=== PATIENT | female | born 1985 | race African-American/Black ===

== ENCOUNTER 2016-08-04 10:13 | Emergency (ER) | payer MEDICARE, OTHER ==
[~2016-08-04] VITALS: Ht 152.4 cm; Wt 93.0 kg
[2016-08-04] MEDS ORDERED: ARIP1TAB5 PO (10:36)
[2016-08-04 10:38] VITALS: BP 116/78; PULSE 84; RESP 18; TEMP 98.1; O2SAT 99
[2016-08-04] MEDS ORDERED: schizo med PO (10:38)
--- NOTE | 2016-08-04 11:07 | PD ---
HPI Chief Complaint: Psychiatric Symptoms Time Seen by Provider: 11:07 Travel History International Travel<30 days: No Contact w/Intl Traveler<30days: No Traveled to known affect area: No History of Present Illness HPI 30-year-old female presents to the emergency Department under [place] act for hearing voices. Patient was a history of schizophrenia. She states she is currently on Abilify and one other medication that she takes 3 times daily. She states she is taking as prescribed, but the voices are getting worse. She states the last night, the voices matre violent and she hit her hand against a glass table causing a small cut to her right hand. Patient states her tetanus immunization is not up-to-date. She also reports a history of pilonidal cyst removal and currently has a wound VAC. She states she had the pilonidal cyst removed on July 18, 2016. She denies any complications. No fevers. She has no other chronic medical problems. She states she takes no other medications other than her psychiatric medications. Patient denies . She denies any medical complaints at this time. [facility] Past Medical History Asthma: No Autoimmune Disease: No Anxiety: Yes Depression: Yes COPD: No Respiratory: No Schizophrenia: Yes Sleep Apnea: No Influenza Vaccination: No ?: Unknown Past Surgical History Surgical History: No Previous Surgery Social History Alcohol Use: No Tobacco Use: No Substance Use: No Allergies-Medications (Allergen,Severity, Reaction): Coded Allergies: Penicillin (Verified Allergy, Intermediate, rash, 08/04/16) Sulfa (Verified Allergy, Intermediate, rash, 08/04/16) Reported Meds & Prescriptions Reported Meds & Active Scripts Active Reported [schizo med] 1 Tab PO TID Abilify (Aripiprazole) 10 Mg Tab 10 Mg PO DAILY Review of Systems Except as stated in HPI: all other systems reviewed are Neg Physical Exam Narrative GENERAL: Well-developed well-nourished female patient, ambulatory. Afebrile. SKIN: Warm and dry. Patient has a wound VAC to the upper gluteal cleft. Surrounding Skin appears well with no erythema. Patient has a small superficial laceration to the right medial hand without active bleeding. HEAD: Normocephalic. Atraumatic. EYES: No scleral icterus. No injection or drainage. NECK: Supple, trachea midline. No JVD or lymphadenopathy. CARDIOVASCULAR: Regular rate and rhythm without murmurs, gallops, or rubs. RESPIRATORY: Breath sounds equal bilaterally. No accessory muscle use. Lungs sounds are clear to auscultation. GASTROINTESTINAL: Abdomen soft, non-tender, nondistended. MUSCULOSKELETAL: No cyanosis, or edema. BACK: Nontender without obvious deformity. No CVA tenderness. Data Data Last Documented VS Vital Signs Date Time Temp Pulse Resp B/P Pulse Ox O2 Delivery O2 Flow Rate FiO2 08/04/16 10:38 98.1 84 18 116/78 99 Orders Complete Blood Count With Diff (08/04/16 11:05) Comprehensive Metabolic Panel (08/04/16 11:05) Drug Screen, Random Urine (08/04/16 11:05) Alcohol (Ethanol) (08/04/16 11:05) Psych Screen (08/04/16 11:05) Ed Urine Pregnancytest Poc (08/04/16 11:05) Tetanus/Diphtheria Tox Adult (Tetanus/Di (08/04/16 11:15) Wound Care (08/04/16 11:05) Labs Laboratory Tests Test 08/04/16 08/04/16 11:00 11:45 Sodium Level 139 MEQ/L Potassium Level 4.4 MEQ/L Chloride Level 109 MEQ/L Carbon Dioxide Level 22.3 MEQ/L Anion Gap 8 MEQ/L Blood Urea Nitrogen 12 MG/DL Creatinine 0.96 MG/DL Estimat Glomerular Filtration 83 ML/MIN Rate Random Glucose 84 MG/DL Calcium Level 8.6 MG/DL Total Bilirubin 0.3 MG/DL Aspartate Amino Transf 60 U/L (AST/SGOT) Alanine Aminotransferase 56 U/L (ALT/SGPT) Alkaline Phosphatase 82 U/L Total Protein 7.3 GM/DL Albumin 3.6 GM/DL Urine Opiates Screen NEG Urine Barbiturates Screen POS Urine Amphetamines Screen NEG Urine Benzodiazepines Screen NEG Urine Cocaine Screen NEG Urine Cannabinoids Screen NEG Ethyl Alcohol Level LESS THAN 3 MG/DL White Blood Count 13.8 TH/MM3 Red Blood Count 4.83 MIL/MM3 Hemoglobin 13.3 GM/DL Hematocrit 42.8 % Mean Corpuscular Volume 88.7 FL Mean Corpuscular Hemoglobin 27.5 PG Mean Corpuscular Hemoglobin 31.0 % Concent Red Cell Distribution Width 14.8 % Platelet Count 342 TH/MM3 Mean Platelet Volume 7.4 FL Neutrophils (%) (Auto) 81.5 % Lymphocytes (%) (Auto) 7.0 % Monocytes (%) (Auto) 9.8 % Eosinophils (%) (Auto) 1.1 % Basophils (%) (Auto) 0.6 % Neutrophils # (Auto) 11.3 TH/MM3 Lymphocytes # (Auto) 1.0 TH/MM3 Monocytes # (Auto) 1.4 TH/MM3 Eosinophils # (Auto) 0.2 TH/MM3 Basophils # (Auto) 0.1 TH/MM3 CBC Comment DIFF FINAL Differential Comment MDM Medical Decision Making Medical Screen Exam Complete: Yes Emergency Medical Condition: Yes Medical Record Reviewed: Yes Differential Diagnosis Schizophrenia versus abrasion versus laceration versus depression versus bipolar disorder Narrative Course 30-year-old female presents to the emergency Department under [place] act for psychiatric evaluation. She was sent by sally Rudolph due to having wound VAC. She denies any complications with this. Tetanus immunization is updated. Laceration is very superficial and no sutures are indicated at this time. CBC , CMP, urine drug screen, alcohol level are ordered and pending. Urine test is ordered and pending. CBC shows leukocytosis of 13.8, possibly stress-induced. CMP shows slightly elevated LFTs of AST 60, AST 56. Urine drug screen is positive for barbiturates. Alcohol level is less than 3. Urine test is negative. Diagnosis Primary Impression: Schizophrenia Qualified Code: F20.9 - Schizophrenia, unspecified type Additional Instructions: Patient is medically cleared for psychiatric screening and disposition. Condition: Stable Caterina MathiasP Aug 04, 2016 11:07
[2016-08-04] MEDS ORDERED: TETANUS/DIPHTHERIA TOXOID ADULT 0.5 ML VIAL IM ONE (11:15)
[2016-08-04 11:32] LABS: AMPHETAMINE, URINE NEG (NEG); BARBITURATES, URINE POS (NEG); COCAINE, URINE NEG (NEG)
[2016-08-04 11:44] LABS: ALT (GPT) 56 U/L (10-53); ANION GAP 8 MEQ/L (5-15); AST (GOT) 60 U/L (15-37); BICARBONATE 22.3 MEQ/L (21.0-32.0); BLOOD UREA NITROGEN 12 MG/DL (7-18); CHLORIDE 109 MEQ/L (98-107); GLOMERULAR FILTRATION RATE 83 ML/MIN (>89); POTASSIUM 4.4 MEQ/L (3.5-5.1); SODIUM (NA) 139 MEQ/L (136-145)
[2016-08-04 11:45] LABS: ALKALINE PHOSPHATASE 82 U/L (45-117); TOTAL BILIRUBIN ADULT 0.3 MG/DL (0.2-1.0)
[2016-08-04 12:05] LABS: AUTOMATED NEUTROPHIL # 11.3 TH/MM3 (1.8-7.7); BASOPHIL # 0.1 TH/MM3 (0-0.2); BASOPHIL % 0.6 % (0.0-2.0); EOSINOPHIL # 0.2 TH/MM3 (0-0.4); EOSINOPHIL % 1.1 % (0.0-4.0); HEMATOCRIT 42.8 % (35.0-46.0); HEMO FLAGS DIFF FINAL; MEAN CELL VOLUME 88.7 FL (80.0-100.0); MEAN CORPUSCULAR HEMOGLOBIN 27.5 PG (27.0-34.0); MONO % 9.8 % (0.0-8.0); NEUT % 81.5 % (16.0-70.0); PLATELET COUNT 342 TH/MM3 (150-450); RED BLOOD COUNT 4.83 MIL/MM3 (4.00-5.30); RED CELL DISTRIBUTION WIDTH 14.8 % (11.6-17.2); WHITE BLOOD COUNT 13.8 TH/MM3 (4.0-11.0)
[2016-08-04 15:00] VITALS: BP 120/70; PULSE 85; RESP 18; TEMP 98.7; O2SAT 99
--- NOTE | 2016-08-04 16:29 | PD ---
History of Present Illness Chief Complaint: Psychiatric Symptoms Time Seen by Provider: 15:50 Travel History International Travel<30 Days: No Contact w/Intl Traveler<30days: No Known affected area: No Legal Status Legal Status: [place] Act [place] Act Signed By: Marium Wheeler History of Present Illness: History of Present Illness 30-year-old female with history of schizophrenia who presents to the emergency Department under [place] act initiated by SHANIQUE. As per the report; " Maribell speaks to the devil and voices tell her things to do. She started to break things because of the voices which resulted in injury to her hand." Patient is seen in [facility] pod. She is calm and cooperative. Speech is clear and logical. She informs me that beginning yesterday she began to experience increase in auditory hallucinations that keep a running commentary. She became frustrated with the voices and " got tired of fighting with them " and she banged her hand against a table causing a small cut to her right hand. She then called the ambulance. She denies that the voices are telling her to harm herself or anyone else and that she is not hearing them here in the hospital. She states she is currently on Abilify 10 mg and one other medication that she takes 3 times daily but is unable to remember the name of the medication . She reports medication compliance. Her psychiatric medications were recently changed as she stopped receiving the Abilify injectable about 2 months ago due to her reports of increased hallucinations on such medication. She is followed at [facility] in [place]. She also reports a history of pilonidal cyst removal and currently has a wound VAC. She states she had the pilonidal cyst removed on July 18, 2016. She denies any complications. I spoke with her father after Maribell gave verbal consent. He feels that he feels comfortable if she is discharged. I also spoke with her mother , Rosi and she has no concerns for the patient's safety. She will come and pick her up. The patient is staying with her in her home. [facility] Past Medical History Asthma: No Autoimmune Disease: No Anxiety: Yes Depression: Yes COPD: No Respiratory: No Schizophrenia: Yes Sleep Apnea: No Influenza Vaccination: No ?: Unknown Past Surgical History Surgical History: No Previous Surgery Psychiatric History Psychiatric History Hx Psychiatric Treatment: First contact with [facility] in 2004 w dx of Psychosis. History of Inpatient Treatment: Yes ([facility] in 2004) Guns or firearms in home: No Social History Single female. Completed 12 grade in [employer] classes. Works at [employer]. Lives in her own apartment. Never . Hx Alcohol Use: No Hx Tobacco Use: No Hx Substance Use: No Hx of Substance Use Treatment: No Family Psychiatric History None reported Allergies-Medications (Allergen,Severity, Reaction): Coded Allergies: Penicillin (Verified Allergy, Intermediate, rash, 08/04/16) Sulfa (Verified Allergy, Intermediate, rash, 08/04/16) Reported Meds & Prescriptions Reported Meds & Active Scripts Active Reported [schizo med] 1 Tab PO TID Abilify (Aripiprazole) 10 Mg Tab 10 Mg PO DAILY Review of Systems Constitutional: COMPLAINS OF: Weight gain Endocrine: DENIES: Abnorml menstrual pattern, Heat/cold intolerance, Polydipsia , Polyuria, Polyphagia Eyes: DENIES: Blurred vision, Diplopia, Eye inflammation, Eye pain, Vision loss , Photosensitivity, Double Vision Ears, nose, mouth, throat: DENIES: Tinnitus, Hearing loss, Vertigo, Nasal discharge, Oral lesions, Throat pain, Hoarseness, Ear Pain, Running Nose, Epistaxis, Sinus Pain, Toothache, Odynophagia Respiratory: DENIES: Apneas, Cough, Snoring, Wheezing, Hemoptysis, Sputum production, Shortness of breath Cardiovascular: DENIES: Chest pain, Palpitations, Syncope, Dyspnea on Exertion , PND, Lower Extremity Edema, Orthopnea, Claudication Gastrointestinal: DENIES: Abdominal pain, Black stools, Bloody stools, Constipation, Diarrhea, Nausea, Vomiting, Difficulty Swallowing, Anorexia Genitourinary: DENIES: Abnormal vaginal bleeding, Dysmenorrhea, Dyspareunia, Sexual dysfunction, Urinary frequency, Urinary incontinence, Urgency, Hematuria , Dysuria, Nocturia, Vaginal discharge Musculoskeletal: DENIES: Joint pain, Muscle aches, Stiffness, Joint Swelling, Back pain, Neck pain Integumentary: DENIES: Abnormal pigmentation, Pruritus, Rash, Nail changes, Breast masses, Breast skin changes, Nipple discharge Hematologic/lymphatic: DENIES: Bruising, Lymphadenopathy Immunologic/allergic: DENIES: Eczema, Urticaria Neurologic: DENIES: Abnormal gait, Headache, Localized weakness, Paresthesias, Seizures, Speech Problems, Tremor, Poor Balance Psychiatric: COMPLAINS OF: Hallucinations Exam Alert: Yes [place]: Person (ox4) Mood: Calm Affect: Restricted Speech: Clear, Logical Eye Contact: Indirect Memory Intact: Comment (no imapirment) Hallucinations: Auditory Delusions: No Suicidal: Ideation (deneis any) Homicidal: Ideation (deneis) Insight/Judgement Fair. Fair MDM Medical Decision Making Medical Record Reviewed: Yes Assessment/Plan 89 year old female under a BA after she called the police for assistance. She reports she was experiencing increase in voices and became frustrated and hit a table. She denies that the voices are telling her to harm herself and denies that this was in an attempt to harm herself but that she was frustrated. She does state that " I need to not pay attention to the voices as well as wanting to continue with care at [facility]. Patient does not meet criteria for BA at this time and does not want to stay in the hospital. I have encouraged her to consider a brief admission to adjust her medication but she has declined and wants to follow up with [facility] on Sunday. Both her mother and her father have been contacted and they donot feel that she needs to be in the hospital as this is a chronic condition. I will give her one dose of Abilify here in the Ed prior to discharge. The BA is lifted. I Orders Complete Blood Count With Diff (08/04/16 11:05) Comprehensive Metabolic Panel (08/04/16 11:05) Drug Screen, Random Urine (08/04/16 11:05) Alcohol (Ethanol) (08/04/16 11:05) Psych Screen (08/04/16 11:05) Ed Urine Pregnancytest Poc (08/04/16 11:05) Tetanus/Diphtheria Tox Adult (Tetanus/Di (08/04/16 11:15) Wound Care (08/04/16 11:05) Results Vital Signs Date Time Temp Pulse Resp B/P Pulse Ox O2 Delivery O2 Flow Rate FiO2 08/04/16 10:38 98.1 84 18 116/78 99 Laboratory Tests Test 08/04/16 08/04/16 11:00 11:45 Sodium Level 139 Potassium Level 4.4 Chloride Level 109 Carbon Dioxide Level 22.3 Anion Gap 8 Blood Urea Nitrogen 12 Creatinine 0.96 Estimat Glomerular Filtration 83 Rate Random Glucose 84 Calcium Level 8.6 Total Bilirubin 0.3 Aspartate Amino Transf 60 (AST/SGOT) Alanine Aminotransferase 56 (ALT/SGPT) Alkaline Phosphatase 82 Total Protein 7.3 Albumin 3.6 Urine Opiates Screen NEG Urine Barbiturates Screen POS Urine Amphetamines Screen NEG Urine Benzodiazepines Screen NEG Urine Cocaine Screen NEG Urine Cannabinoids Screen NEG Ethyl Alcohol Level LESS THAN 3 White Blood Count 13.8 Red Blood Count 4.83 Hemoglobin 13.3 Hematocrit 42.8 Mean Corpuscular Volume 88.7 Mean Corpuscular Hemoglobin 27.5 Mean Corpuscular Hemoglobin 31.0 Concent Red Cell Distribution Width 14.8 Platelet Count 342 Mean Platelet Volume 7.4 Neutrophils (%) (Auto) 81.5 Lymphocytes (%) (Auto) 7.0 Monocytes (%) (Auto) 9.8 Eosinophils (%) (Auto) 1.1 Basophils (%) (Auto) 0.6 Neutrophils # (Auto) 11.3 Lymphocytes # (Auto) 1.0 Monocytes # (Auto) 1.4 Eosinophils # (Auto) 0.2 Basophils # (Auto) 0.1 CBC Comment DIFF FINAL Differential Comment Diagnosis Primary Impression: Schizophrenia Psychiatrically Cleared: Yes Additional Instructions: Patient is medically cleared for psychiatric screening and disposition. Disposition: 01 DISCHARGE HOME Condition: Stable Problem Qualifiers Primary Impression: Schizophrenia Qualified Code: F20.9 - Schizophrenia, unspecified type Lizzy Fitch Aug 04, 2016 16:29
[2016-08-04] MEDS ORDERED: ARIPiprazole 5 MG TAB PO ONE (17:00)
[2016-08-04 17:40] VITALS: PULSE 74; RESP 16; O2SAT 99
== END 2016-08-04 18:23 | disposition home or self-care (01) ==
LOC: NEDAMB 10:13 → NEPJ 18:23
DX: F20.9 Schizophrenia, unspecified (principal); S61.411A Laceration without foreign body of right hand, initial encounter; W25.XXXA Contact with sharp glass, initial encounter; Z23 Encounter for immunization
CPT/HCPCS: 80053; 80307; 80320; 84703; 85025; 90471; 90714